=== PATIENT | female | born 1965 | race Caucasian/White ===

== ENCOUNTER 2016-07-22 18:14 | Emergency (ER) | payer OTHER | END 2016-07-22 19:15 | disposition home or self-care (01) | LOC: ER 18:14 | DX: J06.9 Acute upper respiratory infection, unspecified (principal); E11.9 Type 2 diabetes mellitus without complications; K21.9 Gastro-esophageal reflux disease without esophagitis; F32.9 Major depressive disorder, single episode, unspecified; E78.5 Hyperlipidemia, unspecified; G43.909 Migraine, unspecified, not intractable, without status migrainosus; Z87.19 Personal history of other diseases of the digestive system; Z78.0 Asymptomatic menopausal state; Z88.6 Allergy status to analgesic agent; Z79.899 Other long term (current) drug therapy; Z79.84 Long term (current) use of oral hypoglycemic drugs | CPT/HCPCS: 87400; 99283 ==

== ENCOUNTER 2016-10-18 17:27 | Observation (INO) | payer OTHER ==
[~2016-10-18] VITALS: Ht 149.9 cm; Wt 91.0 kg
[2016-10-18 18:56] LABS: BASO % 0.2 % (0.1-1.2); EOS # 0.1 10_X3_uL (0.0-0.4); EOS % 0.9 % (0.7-5.8); GRAN # 9.2 10_X3_uL (1.6-6.1); GRAN % 72.9 % (34.0-71.1); HEMATOCRIT 41.5 % (34-45); HEMOGLOBIN 14.2 g/dL (11.2-15.7); LYMPH # 2.4 10_X3_uL (1.2-3.7); LYMPH % 19.4 % (19.3-51.7); MEAN CORPUSCULAR HEMOGLOBIN 26.3 pg (27.0-33.0); MEAN CORPUSCULAR HGB CONC 34.2 g/dL (32.0-36.0); MEAN PLATELET VOLUME 9.8 fl (7.5-11.5); MONO # 0.8 10_X3_uL (0.2-0.9); MONO % 6.6 % (4.7-12.5); PLATELET COUNT 261 x10_3/uL (182-369); RED BLOOD COUNT 5.39 x10_6/uL (3.9-5.2); RED CELL DISTRIBUTION WIDTH 14.1 % (11.7-14.4); WHITE BLOOD COUNT 12.6 x10_3/uL (4.0-10.0)
[2016-10-18 19:13] LABS: ALBUMIN 3.9 gm/dL (3.4-5.0); ALKALINE PHOSPHATASE 191 U/L (50-136); ALT/SGPT 22 U/L (3.5-33.9); AMYLASE 110 U/L (15.62-74.58); AST/SGOT 13 U/L (7.04-26.96); BILIRUBIN,TOTAL 0.24 mg/dL (0.0-1.0); BLOOD UREA NITROGEN 14 mg/dL (7-18); CALCIUM 9.9 mg/dL (8.7-10.7); CARBON DIOXIDE 22 mmol/L (21-32); CREATININE 0.7 mg/dL (0.6-1.3); GLUCOSE,RANDOM 217 mg/dL (70-99); LIPASE 231 U/L (6.75-60.75); POTASSIUM 3.6 mmol/L (3.5-5.1); SODIUM 138 mmol/L (136-145); TOTAL PROTEIN 7.2 gm/dL (6.4-8.2)
[2016-10-19 06:37] LABS: AHDL CHOLESTEROL 32 mg/dL (>40); ALBUMIN 3.8 gm/dL (3.4-5.0); ALKALINE PHOSPHATASE 164 U/L (50-136); ALT/SGPT 18 U/L (3.5-33.9); AMYLASE 63 U/L (15.62-74.58); AST/SGOT 14 U/L (7.04-26.96); BILIRUBIN,TOTAL 0.29 mg/dL (0.0-1.0); BLOOD UREA NITROGEN 14 mg/dL (7-18); CALCIUM 9.1 mg/dL (8.7-10.7); CARBON DIOXIDE 24 mmol/L (21-32); CHOLESTEROL 237 mg/dL (0-200); CREATININE 0.6 mg/dL (0.6-1.3); GLUCOSE,RANDOM 166 mg/dL (70-99); LDL CHOLESTEROL 96 mg/dL (0-99); LIPASE 81 U/L (6.75-60.75); POTASSIUM 4.1 mmol/L (3.5-5.1); SODIUM 139 mmol/L (136-145); TOTAL PROTEIN 6.7 gm/dL (6.4-8.2); TRIGLYCERIDES 658 mg/dL (30-200)
[2016-10-19 06:49] LABS: BASO % 0.3 % (0.1-1.2); EOS # 0.1 10_X3_uL (0.0-0.4); EOS % 0.8 % (0.7-5.8); GRAN # 7.1 10_X3_uL (1.6-6.1); GRAN % 65.7 % (34.0-71.1); HEMOGLOBIN 12.8 g/dL (11.2-15.7); LYMPH # 2.7 10_X3_uL (1.2-3.7); LYMPH % 25.3 % (19.3-51.7); MEAN CORPUSCULAR HEMOGLOBIN 26.3 pg (27.0-33.0); MEAN CORPUSCULAR HGB CONC 33.7 g/dL (32.0-36.0); MEAN PLATELET VOLUME 9.7 fl (7.5-11.5); MONO # 0.9 10_X3_uL (0.2-0.9); MONO % 7.9 % (4.7-12.5); PLATELET COUNT 331 x10_3/uL (182-369); RED BLOOD COUNT 4.87 x10_6/uL (3.9-5.2); RED CELL DISTRIBUTION WIDTH 14.3 % (11.7-14.4); WHITE BLOOD COUNT 10.8 x10_3/uL (4.0-10.0)
[2016-10-20 06:16] LABS: HEMATOCRIT 37.1 % (34-45); MEAN CORPUSCULAR HEMOGLOBIN 26.3 pg (27.0-33.0); MEAN CORPUSCULAR HGB CONC 32.3 g/dL (32.0-36.0); MEAN CORPUSCULAR VOLUME 81.2 fL (79-95); MEAN PLATELET VOLUME 9.5 fl (7.5-11.5); RED BLOOD COUNT 4.57 x10_6/uL (3.9-5.2); RED CELL DISTRIBUTION WIDTH 14.3 % (11.7-14.4)
[2016-10-20 06:33] LABS: ALBUMIN 3.3 gm/dL (3.4-5.0); ALKALINE PHOSPHATASE 156 U/L (50-136); ALT/SGPT 18 U/L (3.5-33.9); AMYLASE 40 U/L (15.62-74.58); AST/SGOT 14 U/L (7.04-26.96); BILIRUBIN,TOTAL 0.17 mg/dL (0.0-1.0); BLOOD UREA NITROGEN 10 mg/dL (7-18); CALCIUM 8.8 mg/dL (8.7-10.7); CARBON DIOXIDE 21 mmol/L (21-32); CREATININE 0.7 mg/dL (0.6-1.3); GLUCOSE,RANDOM 362 mg/dL (70-99); LIPASE 31 U/L (6.75-60.75); POTASSIUM 4.4 mmol/L (3.5-5.1); SODIUM 136 mmol/L (136-145); TOTAL PROTEIN 6.4 gm/dL (6.4-8.2)
== END 2016-10-20 11:17 | disposition home or self-care (01) ==
LOC: ER 17:27 → MS 21:06 → UNDODEPER 10-20 21:52
PROVIDERS: Emergency Medicine; ADMIT Family Medicine
DX: K85.90 Acute pancreatitis without necrosis or infection, unspecified (principal); E78.1 Pure hyperglyceridemia; E11.65 Type 2 diabetes mellitus with hyperglycemia; E87.1 Hypo-osmolality and hyponatremia; G25.81 Restless legs syndrome; K58.9 Irritable bowel syndrome, unspecified; E11.43 Type 2 diabetes mellitus with diabetic autonomic (poly)neuropathy; F41.9 Anxiety disorder, unspecified; K76.0 Fatty (change of) liver, not elsewhere classified; G62.9 Polyneuropathy, unspecified; Z90.49 Acquired absence of other specified parts of digestive tract; Z90.710 Acquired absence of both cervix and uterus; Z96.9 Presence of functional implant, unspecified; Z82.49 Family history of ischemic heart disease and other diseases of the circulatory system; Z83.3 Family history of diabetes mellitus; Z91.040 Latex allergy status; Z88.6 Allergy status to analgesic agent
CPT/HCPCS: 36415; 80053; 80061; 82150; 82962; 83036; 83690; 85025; 96361; 96365; 96366; 96367; 96372; 96375; 96376; 99070; 99285-25; G0378; J1170